=== PATIENT | male | born 1985 | race Caucasian/White ===

== ENCOUNTER → 2018-07-05 06:30 | Day surgery (SDC) | payer OTHER ==
[2018-07-03 16:29] LABS: INR 1.07 (0.85-1.17); PROTIME 13.5 SECONDS (11.6-15.0)
[2018-07-03 16:34] LABS: HEMATOCRIT 42.7 % (42.0-54.0); HEMOGLOBIN 14.7 g/dL (13.5-17.5); MCH 31.3 pg (26.0-34.0); MCHC 34.4 g/dL (31.0-37.0); MEAN PLATELET VOLUME 9.5 fL (7.4-10.4); RBC 4.69 10x6/uL (4.20-6.10); RDW 13.7 % (11.5-14.5); WBC 13.6 10x3/uL (4.8-10.8)
[2018-07-03 17:06] LABS: ALBUMIN 4.3 g/dL (3.4-5.0); ALKALINE PHOSPHATASE 41 U/L (46-116); ALT (SGPT) 34 U/L (10-68); BILIRUBIN - TOTAL 0.45 mg/dL (0.2-1.3); CALC OSMOLALITY 278 mosm/kg (275-300); CALCIUM 9.1 mg/dL (8.5-10.1); CARBON DIOXIDE 29.1 mmol/L (21.0-32.0); CHLORIDE - SERUM 102 mmol/L (98-107); CREATININE - SERUM 0.9 mg/dL (0.6-1.3); GLUCOSE 94 mg/dL (74-106); POTASSIUM - SERUM 4.4 mmol/L (3.5-5.1); PROTEIN - SERUM 7.7 g/dL (6.4-8.2); SODIUM 139 mmol/L (136-145); UREA NITROGEN 16 mg/dL (7-18); eGFR NON AFRICAN AMERICAN > 90 mL/min (90-120)
[~2018-07-05] VITALS: Ht 167.6 cm; Wt 84.8 kg
[~2018-07-05 06:30] MED LIST: BUPROPION HCL75 MG PO; CENTRUM MEN'S1 EACH PO; CYCLOBENZAPRINE10 MG PO; FISH OIL 1,0001 CA1 PO; HYDROCODON-ACE1 EAC7 PO; PERCOCET 5-3251 TAB PO; TRAZODONE HCL100 MG PO
[2018-07-05 07:06] VITALS: BP 122/82; Ht 167.6 cm; Wt 84.8 kg
== END | disposition home or self-care (01) ==
LOC: D.OPS 06:30 → D.PAN 09:00 → D.OPS 09:30 → D.PAN 09:30
PROVIDERS: Anesthesiology
DX: K43.6 Other and unspecified ventral hernia with obstruction, without gangrene (principal); Z01.812 Encounter for preprocedural laboratory examination